=== PATIENT | female | born 2000 | race Caucasian/White ===

== ENCOUNTER 2024-12-22 16:14 | Emergency (ER) | payer BC, SELFPAY ==
[2024-12-22 16:18] VITALS: BP 128/90
[2024-12-22 17:01] LABS: % Basophils 0.5 % (0-2); % Eosinophils 0.2 % (0-6); % Immature Granulocytes 0.3 % (0-0.5); % Lymphocytes 18.1 % (20.5-51.1); % Monocytes 3.8 % (1.7-9.3); % Neutrophils 77.1 % (42.2-75.2); Absolute Basophils 0.1 10^3/uL (0-0.2); Absolute Lymphocytes 1.8 10^3/uL (1.2-3.4); Absolute Monocytes 0.4 10^3/uL (0.1-0.6); Absolute Neutrophils 7.7 10^3/uL (1.4-6.5); Hematocrit 39.2 % (37.0-47.0); Hemoglobin 13.7 g/dL (12.0-16.0); Mean Corp Hgb Conc. 34.9 g/dL (33.0-37.0); Mean Corpuscular Hgb 31.5 pg (27.0-31.0); Mean Corpuscular Volume 90.1 fL (81.0-99.0); Mean Platelet Volume 9.3 fL (7.4-10.4); Nucleated Red Blood Cells % 0 %; Platelet Count 228 10^3/uL (130-400); Red Blood Cell Count 4.35 10^6/uL (4.20-5.40); Red Cell Dist. Width 11.8 % (11.5-14.5); White Blood Cell Count 9.9 10^3/uL (4.8-10.8)
[2024-12-22 17:14] LABS: ALT (SGPT) 17 U/L (0-35); AST (SGOT) 23 U/L (14-36); Albumin 4.4 g/dl (3.5-5.0); Alkaline Phosphatase 56 U/L (38-126); Blood Urea Nitrogen 9 mg/dl (7-17); Calcium 9.2 mg/dl (8.4-10.2); Carbon Dioxide 25 mmol/L (22-30); Chloride 101 mmol/L (98-107); Glucose 90 mg/dl (70-99); Sodium 136 mmol/L (135-145); Total Bilirubin 0.4 mg/dl (0.2-1.3); Total Protein 7.4 g/dl (6.3-8.2); eGFR > 60.00
[2024-12-22 17:31] LABS: HCG, Serum Qualitative Screen Negative
[2024-12-22 19:43] VITALS: BP 115/74
--- NOTE | 2024-12-22 20:10 | ED.GENMED ---
History of Present Illness
General
Chief Complaint: Numbness
Source: patient
Time Seen by Provider: 12/22/24 18:59
History of Present Illness
History of Present Illness:
24-year-old female with no significant past medical history presenting to the emergency department at the request of her urgent care for evaluation after around 1:40 PM she started to notice a tingling sensation to her right hand that gradually made
its way up her arm and onto the right side of her face also stating she felt as if she was having a hard time forming a sentence. Patient was at home working at the time with symptoms lasting for approximately 30 minutes to an hour and then
subsequently developing a headache. Patient reports that the headache only lasted for around another hour and then resolved and at time of my exam is asymptomatic. Denies any history of similar. No fevers, no neck pain or stiffness, no traumatic
injuries, chest pain, shortness of breath, palpitations or any other concerns. Social history and family history are both noncontributory. Patient did not take anything for her symptoms prior to arrival.
Past History
Past History
ED Past Medical History: Psychiatric (Anxiety)
ED Past Surgical History: None
Social History
Tobacco: Non-smoker
Alcohol: Occasional
Drug: None
Personal: Single
Living: with family
Employment: Employed
Review of Systems
Review of Systems
All Other Systems: ROS reviewed and negative except as documented in HPI and ROS
Phy Exam
Physical Exam
Physical Exam:
GENERAL: Alert , in no apparent distress
HEAD: NCAT
EYE: conjunctiva clear, pupils 5mm b/l
NECK: Supple, no significant adenopathy.
ENT: o/p clr, mmm.
CARDIAC: Regular rate and rhythm
LUNGS: Clear breath sounds bilaterally, no acute respiratory distress, no wheezes/rales/rhonchi
NEUROLOGICAL: Alert and oriented x 3, PINEDO x 4, finger to nose intact, heel to tesfaye intact, 5/5 strength UE and LE b/l, no sensory deficits, no ataxia
SKIN: Warm and dry, skin intact.
MUSCULOSKELETAL: well perfused.
PSYCH: Normal and appropriate interaction.
Scores
Heart Failure Risk
Heart Failure Risk Score: Not Applicable
Heart Score for Chest Pain Patients
STEMI patient?: Not applicable
Withdrawal Assessment of Alcohol
Withdrawal Assessment Completed?: Not applicable
Course
Orders/Labs/Results
Orders:
Orders
12/22/24 16:23
Electrocardiogram (*1) Urgent
Reason for Study: Chest Pain
12/22/24 16:24
EKG- Treatment ONCE
Test Result ONCE
12/22/24 16:31
CT Head W/o Iv Contrast Urgent
Comment: subsided and now has a CALDERON
Reason For Exam: numbness to right side of body for one hour
12/22/24 16:47
Complete Blood Count/With Diff Urgent
Comprehensive Metabolic Panel Urgent
HCG, Serum Qualitative Screen Urgent
Comment: Notify provider if positive test present
Abnormal Lab Results
12/22/24
16:47
MCH 31.5 H pg
(27.0-31.0)
Absolute Neuts (auto) 7.7 H 10^3/uL
(1.4-6.5)
Neutrophils % 77.1 H %
(42.2-75.2)
Lymphocytes % 18.1 L %
(20.5-51.1)
12/22/24 16:47
12/22/24 16:47
Vital Signs
Initial and Last Documented VS:
Initial Vital Signs
Temp Pulse Resp BP Pulse Ox
98.3 F 98 16 128/90 100
12/22/24 16:18 12/22/24 16:18 12/22/24 16:18 12/22/24 16:18 12/22/24 16:18
Last Documented Vital Signs
Temp Pulse Resp BP Pulse Ox
98.3 F 84 16 115/74 99
12/22/24 16:18 12/22/24 19:43 12/22/24 19:43 12/22/24 19:43 12/22/24 19:43
MDM/Problems Addressed
Differential Diagnosis Includes:
Atypical migraine, as CVA/TIA considered however given patient's age and lack of medical complications I am less suspicious for this as a diagnosis, giant cell arteritis also considered however much less likely, aneurysm, subarachnoid
MDM/Problems Addressed:
24-year-old female presenting to the emergency department for evaluation of right upper extremity and facial paresthesia that occurred around 140, lasted for approximately 1 hour and subsequently developed a with the headache also now fully
resolved. Patient asymptomatic. No risk factors for CVA/TIA. Labs and CT were ordered from triage. Hemodynamically stable. I am most suspicious for an atypical migraine is most likely diagnosis. Reassessment following CT imaging
*Radiology
Radiology exam reviewed: radiology read reviewed
*Pulse Oximetry
Patient hypoxic: no
*Critical Care Note
Total Time (30-74mins, 75-104mins- exclusive of procedures): Not Applicable
Patient Management
Escalation/DeEscalation of care consider admission/obs:
Patient's workup is unremarkable. She remains asymptomatic. Father now present in the emergency department, feels comfortable taking patient home. Aware of return precautions. Recommended close follow-up with primary care provider.
ED Attending Note
-
Portions of this chart may have been created with voice recognition software.� Occasional wrong word or��sound alike� substitutions may have occurred due to the inherent limitations of voice recognition software.
Discharge Plan
Departure
Patient Disposition: Home (Routine Discharge)
Date of Disposition: 12/22/24
Time of Disposition: 20:10
Patient with high blood pressure during this ER visit?: No
Discharge Problem:
Atypical migraine
Instructions: Migraine in adults
Prescriptions:
No Action
escitalopram oxalate [Lexapro] 10 mg Tablet
10 mg PO DAILY
Fe 24 1 mg-20 mcg (24)/75 mg (4) Tablet
1 tab PO DAILY
Referrals:
Silvia Champion PA-C [Family Provider] -
Interventions
Interventions:
*Risk Screen - Suicide Last Done: 12/22/24 16:18
*General Assessment Last Done: 12/22/24 19:44
*Neglect/Abuse Screening Last Done: 12/22/24 16:18
ED- Fall Risk Assessment Last Done: 12/22/24 19:44
*ED COVID-19 Vaccine History Last Done: 12/22/24 19:44
*Nursing Disposition Last Done: 12/22/24 20:15
ED- Neurological Assessment Last Done: 12/22/24 18:22
Discharge Date and Time
Print Language: ANGUILLAN
== END 2024-12-22 20:26 | disposition home or self-care (01) ==
LOC: EMR 16:14
PROVIDERS: Emergency Medicine; EMERGENCY PHYSICIAN Emergency Medicine; FAMILY PHYSICIAN Physician Assistant
DX: G43.809 Other migraine, not intractable, without status migrainosus (principal)
CPT/HCPCS: 99284; 70450; 80053; 84703; 85025; 93005